=== PATIENT | female | born 2000 | race Two or more races ===

== ENCOUNTER 2025-03-29 16:07 | Emergency (ER) | payer OTHER ==
[~2025-03-29] VITALS: Ht 160 cm; Wt 109.3 kg
[2025-03-29] MEDS ORDERED: CEFIXIME400 MG PO (16:39)
[2025-03-29] MEDS ORDERED: PR NATAL 400 C1 EACH (16:39)
[2025-03-29] MEDS ORDERED: CEFTRIAXONE SODIUM 1,000 MG VIAL ONE (18:44)
[2025-03-29] MEDS ORDERED: CEFTRIAXONE SODIUM 1,000 MG VIAL IV ONE (18:45)
[2025-03-29 19:33] LABS: HEMATOCRIT 35.9 % (36.0-45.00); HEMOGLOBIN 12.7 g/dL (12.0-15.00); MEAN CELL VOLUME 85.3 fL (80.00-100.00); MEAN CORPUSCULAR HEMOGLOBIN 30.2 pg (27.00-32.0); MEAN CORPUSCULAR HGB CONC 35.4 g/dl (32.0-36.0); PLATELET COUNT 269 K/uL (150-450); RED BLOOD COUNT 4.22 M/uL (4.00-6.00); RED CELL DISTRIBUTION WIDTH 13.6 % (11.5-14.5)
[2025-03-29 20:05] LABS: ALBUMIN 2.9 gm/dL (3.4-5.0); BILIRUBIN TOTAL 0.39 mg/dL (0.3-1.2); CALCIUM 9.4 mg/dL (8.5-10.1); CREATININE SERUM 0.48 mg/dL (0.55-1.02); GFR 161.72; GLOBULINA 5.3 G/DL (2.4-3.5); POTASSIUM 3.71 mEq/L (3.5-5.1); TOTAL PROTEIN 8.2 gm/dL (6.4-8.2)
[2025-03-29] MEDS ORDERED: ACETAMINOPHEN 500 MG GEL..CAP PO ONE ×2 (22:55→23:00)
[2025-03-30 01:21] LABS: URINE BILIRRUBIN NEGATIVE (NEGATIVE); URINE BLOOD NEGATIVE; URINE GLUCOSE NEGATIVE (NEGATIVE); URINE KETONE 15 (NEGATIVE); URINE LEUKOCYTE SMALL; URINE NITRATE NEGATIVE; URINE PROTEIN NEGATIVE (NEGATIVE)
[2025-03-30 01:30] LABS: URINE APPEARANCE SL CLOUDY; URINE COLOR YELLOW
[2025-03-30 01:32] LABS: URINE RBC 0-3 /HPF; URINE WBC 31-40 /hpf
[2025-03-30 01:33] LABS: URINE BACTERIA MODERATE; URINE MUCUS NEGATIVE
== END 2025-03-30 01:46 | disposition home or self-care (01) ==
LOC: ER 16:07
PROVIDERS: General Practice
DX: Z34.90 Encounter for supervision of normal pregnancy, unspecified, unspecified trimester (principal); Z3A.17 17 weeks gestation of pregnancy; N39.0 Urinary tract infection, site not specified; R10.9 Unspecified abdominal pain

== ENCOUNTER 2025-08-26 08:58 | Inpatient (IN) | payer OTHER ==
[~2025-08-26] VITALS: Ht 160 cm; Wt 117.9 kg
[2025-08-26] VITALS (9 sets, daily range): BP systolic 128–186; BP diastolic 65–100
[~2025-08-26 08:58] MED LIST: CEFIXIME400 MG PO; PR NATAL 400 C1 EACH
[2025-08-26] MEDS ORDERED: RINGERS SOLUTION,LACTATED 1,000 ML IV SCH ×2 (09:15→18:45)
[2025-08-26 09:18] LABS: BASO % 0.3 % (0.1-1.2); EOS # 0.03 (0.04-0.54); EOS % 0.2 % (0.7-7.0); LYMPH # 1.99 (1.18-3.74); LYMPH % 13.7 % (19.3-53.1); MEAN PLATELET VOLUME 12.00 fl (9.4-12.4); MONO # 0.90 (0.24-0.82); MONO % 6.2 % (4.7-12.5); NEUT # 11.42 (1.56-6.13); NEUT % 78.9 % (34.0-71.1); RED CELL DISTRIBUTION WIDTH 12.5 % (11.6-14.4)
[2025-08-26 09:19] LABS: URINE APPEARANCE Cloudy; URINE BILIRRUBIN Negative (NEGATIVE); URINE BLOOD Moderate; URINE COLOR Yellow; URINE GLUCOSE Negative (NEGATIVE); URINE KETONE Negative (NEGATIVE); URINE LEUKOCYTE Trace; URINE NITRATE Negative; URINE PROTEIN >=1000 (NEGATIVE); URINE UROBILINOGEN 1.0 E.U./dl
[2025-08-26 09:22] LABS: URINE BACTERIA 9184.6 uL (0.0-1933); URINE CAST 9.38 uL (0.0-1.40); URINE EPITHELIAL CELLS 88.7 uL (0.0-38.8); URINE RBC 10.7 uL (0.0-20.8); URINE WBC 69.5 uL (0.0-23.2)
[2025-08-26 09:36] LABS: URINE CRYSTALS MODERATE /HPF
[2025-08-26] MEDS ORDERED: MAGNESIUM SULFATE IN WATER 100 ML IV ONE (09:45)
[2025-08-26 09:50] LABS: INR < 0.93
[2025-08-26 09:56] LABS: ALT/SGPT 13.0 U/L (12-78); AST/SGOT 15.0 U/L (15-37); BILIRUBIN TOTAL 0.46 mg/dL (0.3-1.2); BUN CREA RATIO 21.0 (7.0-25.0); CREATININE SERUM 0.63 mg/dL (0.55-1.02); GFR 117.1; GLOBULINA 4.2 G/DL (2.4-3.5); GLUCOSE FASTING 87.0 mg/dL (65-100); OSMOLALITY SERUM 279.0 MOSM/KG (275-295)
[2025-08-26] MEDS ORDERED: OXYTOCIN 500 ML IV SCH ×2 (11:45→15:30)
[2025-08-26] MEDS ORDERED: MORPHINE SULFATE 4 MG/ML CARTRIDGE IV STA ×2 (12:00→16:44)
[2025-08-26] MEDS ORDERED: ERYTHROMYCIN BASE OPHT 1GM EACH TUBE OP ONE ×2 (16:58→18:45)
[2025-08-26] MEDS ORDERED: LIDOCAINE HCL 1% 10ML VIAL ONE (16:59)
[2025-08-26] MEDS ORDERED: CHLORHEXIDINE GLUCONATE 120 ML BOTTLE TOP ONE ×2 (16:59→18:45)
[2025-08-26] MEDS ORDERED: OXYTOCIN 20 UNITS/1000ML RL PIGGYBAG IV ONE (16:59)
[2025-08-26] MEDS ORDERED: NALOXONE HCL 0.4 MG/ML AMPUL ONE (17:40)
[2025-08-26] MEDS ORDERED: CARBOPROST TROMETHAMINE 250 MCG/ML AMPUL IM ONE (17:46)
[2025-08-26] MEDS ORDERED: CARBOPROST TROMETHAMINE 250 MCG/ML AMPUL IM STA (18:41)
[2025-08-26] MEDS ORDERED: OXYTOCIN 1,000 ML IV SCH (18:45)
[2025-08-26] MEDS ORDERED: ACETAMINOPHEN 500 MG GEL..CAP PO PRN (18:45)
[2025-08-26] MEDS ORDERED: LIDOCAINE HCL 1% 10ML VIAL IJ ONE (18:45)
[2025-08-26] MEDS ORDERED: LABETALOL HCL 200 MG TABLET PO SCH (18:59)
[2025-08-26] MEDS ORDERED: MAGNESIUM SULFATE IN WATER 500 ML IV SCH (19:00)
[2025-08-26] MEDS ORDERED: MAGNESIUM SULFATE IN WATER 0.04 GM/ML IV.SOLN IV ONE (19:04)
[2025-08-26] MEDS ORDERED: LABETALOL HCL 100 MG TABLET PO ONE (19:04)
[2025-08-26] MEDS ORDERED: RINGERS SOLUTION,LACTATED 100 ML IV SCH (19:15)
[2025-08-27 02:13] LABS: BASO % 0.2 % (0.1-1.2); EOS # 0.00 (0.04-0.54); EOS % 0.0 % (0.7-7.0); LYMPH # 1.78 (1.18-3.74); LYMPH % 7.3 % (19.3-53.1); MEAN PLATELET VOLUME 12.20 fl (9.4-12.4); MONO # 1.17 (0.24-0.82); MONO % 4.8 % (4.7-12.5); NEUT # 21.29 (1.56-6.13); NEUT % 87.0 % (34.0-71.1); RED CELL DISTRIBUTION WIDTH 12.9 % (11.6-14.4)
[2025-08-27 02:37] LABS: ALT/SGPT 17.0 U/L (12-78); AST/SGOT 31.0 U/L (15-37); BILIRUBIN TOTAL 0.55 mg/dL (0.3-1.2); BUN CREA RATIO 16.0 (7.0-25.0); CREATININE SERUM 0.86 mg/dL (0.55-1.02); GFR 81.77; GLOBULINA 3.3 G/DL (2.4-3.5); GLUCOSE FASTING 153.0 mg/dL (65-100); OSMOLALITY SERUM 285.0 MOSM/KG (275-295)
[2025-08-27] MEDS ORDERED: MAGNESIUM SULFATE IN WATER 0.04 GM/ML IV.SOLN IV ONE (04:58)
[2025-08-27 05:14] VITALS: BP 125/59
[2025-08-27 07:47] VITALS: BP 134/56
[2025-08-27] MEDS ORDERED: LABETALOL HCL 100 MG TABLET PO ONE (08:59)
[2025-08-27 09:00] VITALS: BP 134/85
[2025-08-27] MEDS ORDERED: HYDROCORTISONE 2.5% 30 GM TUBE RECTAL SCH (09:00)
[2025-08-27] MEDS ORDERED: BENZOCAINE/MENTHOL 90 ML BOTTLE TOP SCH (09:00)
[2025-08-27 18:34] VITALS: BP 140/84
[2025-08-28 00:13] VITALS: BP 129/73
[2025-08-28 08:44] VITALS: BP 153/87
[2025-08-28 08:45] VITALS: BP 150/70
== END 2025-08-28 14:31 | disposition home or self-care (01) | DRG 807 ==
LOC: LDR 08:58 → OB/GYN 08:58 → LDR 14:33 → OB/GYN 08-27 07:59
PROVIDERS: ADMIT Specialist; ATTEND Specialist
PROC: 10E0XZZ Delivery of Products of Conception, External Approach (ICD-10-PCS; principal; 2025-08-26)
PROC: 0W8NXZZ Division of Female Perineum, External Approach (ICD-10-PCS; 2025-08-26)
PROC: 4A1HXCZ Monitoring of Products of Conception, Cardiac Rate, External Approach (ICD-10-PCS; 2025-08-26)
DX: O14.14 Severe pre-eclampsia complicating childbirth (principal); Z37.0 Single live birth; Z3A.38 38 weeks gestation of pregnancy